=== PATIENT | female | born 2000 | race Caucasian/White ===

== ENCOUNTER 2024-08-25 19:19 | Emergency (ER) | payer BC ==
[~2024-08-25] VITALS: Ht 170.2 cm; Wt 90.7 kg
[2024-08-25 19:35] VITALS: BP 116/80; PULSE 83; RESP 18; TEMP 98; O2SAT 96
[2024-08-25 23:07] VITALS: O2SAT 99
[2024-08-25 23:50] VITALS: PULSE 80; RESP 14; O2SAT 98
[2024-08-25] MEDS: predniSONE 20 MG TAB PO ONE (23:50)
[2024-08-25] MEDS: ALBUTEROL SULFATE/IPRATROPIU 3 ML SOL IH ONE (23:52)
[2024-08-26] MEDS ORDERED: TETR15SO92 OP (00:16)
[2024-08-26] MEDS ORDERED: PRED20TA5 PO (00:16)
[2024-08-26] MEDS ORDERED: FLONAS NS (00:16)
[2024-08-26 00:21] VITALS: BP 110/79; PULSE 84; RESP 16; TEMP 97.9; O2SAT 99
== END 2024-08-26 00:21 | disposition home or self-care (01) ==
LOC: MED 19:19
DX: J45.909 Unspecified asthma, uncomplicated (principal); Z79.899 Other long term (current) drug therapy; Z91.010 Allergy to peanuts; Z91.018 Allergy to other foods
CPT/HCPCS: 94640; 99283; J7512